=== PATIENT | female | born 1950 | race African-American/Black ===

== ENCOUNTER → 2017-09-04 09:24 | Outpatient (CLI) | payer MEDICARE ==
[~2017-09-04 09:24] MED LIST: ARAVA10 MG PO; FOLIC ACID1 MG PO; IBUPROFEN200 MG PO; NORVASC5 MG PO; TRIAMTERENE-HCT1 TA1 PO; ZANTAC150 MG PO
--- NOTE | 2017-09-08 08:55 | EC ---
PATIENT:KELLY CORMIER DATE OF SERVICE: 09/04/17 SEX: F MEDICAL RECORD: [id number] DATE OF : 52 LOCATION:D[facility] AGE OF PATIENT: 67 ADMISSION DATE: 09/04/17 REFERRING PHYSICIAN: INTERPRETING PHYSICIAN: JANNETTE DRAKE MD ECHOCARDIOGRAM REPORT ECHO CHARGES 4 ECHO COMPLETE CLINICAL DIAGNOSIS: PALPITATIONS,TACHYCARDIA,DYSPN EA ECHOCARDIOGRAPHIC MEASUREMENTS (adult normal given) AC root (d.<3.7cm) 2.8 cm LV Septum d (<1.2 cm> 1.1 cm Valve Excursion 1.1 cm LV Septum (systole) 1.5 cm Left Atria (s.<4.0cm> 3.1 cm LVPW d(<1.2cm) 1.2 cm RV (d.<2.3cm) 3.7 cm LVPW (sytole) 1.5 cm LV diastole(<5.6CM) 4.4 cm MV E-F(>70mm/sec) cm LV systole 2.8 cm LVOT Diameter 1.7 cm MV exc.(>10mm) cm Est.ejection fraction (50-75%) % Pericardial Effusion N DOPPLER: LVIT cm/sec A 98.0 cm/sec E 70.0 cm/sec LA cm/sec RVSP 39 mmHg LVOT 95 cm/sec AOP1/2T m/s Asc. Ao 128 cm/sec RVOT 72 cm/sec RA cm/sec PA 92 cm/sec AV Gradient Peak 6.51 mmHg AV Mean 2.75 mmHg AV Area 1.8 cm MV Gradient Peak 4.23 mmHg MV Mean 1.70 mmHg MV Area cm COMMENTS: Referral Rn: 2 SHERRY HORAN Mailing Section Clerk: 4 Dr. Drake TAPE# PACS DATE OF SERVICE: 09/04/2017 PROCEDURE: Transthoracic echocardiogram. FINDINGS: 1. Left ventricle shows mild left ventricular hypertrophy with inflow characteristics consistent with diastolic dysfunction. Ejection fraction 55% to 60% without any obvious regional wall motion abnormalities. 2. The left atrium is normal size, normal function. 3. The mitral valve has mild thickening with eccentric mild mitral ECHOCARDIOGRAM REPORT [id number] KELLY CORMIER regurgitation. 4. The aortic valve not well visualized, appears to be grossly normal. 5. Tricuspid valve has mild tricuspid regurgitation. RVSP calculated at 35-40 mmHg. 6. The IVC appears to be normal size and collapses with inspiration. 7. The right ventricle is normal size, normal function. 8. The right atrium is mildly dilated. CONCLUSIONS: The patient has evidence of mild hypertensive heart disease, preserved LV systolic function, no gross valvular abnormalities noted. TRANSINT:[id number] Voice Confirmation ID: [id number] DOCUMENT ID: [id number] JANNETTE DRAKE MD at 0855 CC: [id number] DICTATION DATE: 09/07/17811 PROFESSOR OF EDUCATION: 09/07/[address] [place] [address] CLI 09/04/17 [facility] [address] [place] [address]
[2017-10-20 07:54] VITALS: BMI 25.7
== END | disposition home or self-care (01) ==
LOC: D.ECHO 09:24
DX: R00.2 Palpitations (principal); R00.0 Tachycardia, unspecified; R06.02 Shortness of breath; I10 Essential (primary) hypertension; R06.83 Snoring; R40.0 Somnolence

== ENCOUNTER 2017-10-20 07:10 | Outpatient (CLI) | payer MEDICARE ==
[~2017-10-20] VITALS: Ht 154.9 cm; Wt 61.8 kg
--- NOTE | ~2017-10-20 | HEMODYNAMI ---
PATIENT:KELLY CORMIER MEDICAL RECORD: [id number] : 52 LOCATION:[facility] ADMISSION DATE: 10/20/17 Generatedon:10/20/20179:36 Patient name: KELLY CORMIER Patient #: [id number] SSN: : Date of study: 10/20/2017 Page: Of Hemodynamic Procedure Report Patient Data Patient Demographics Procedure consent was obtained First Name: KELLY Gender: Female Last Name: CASA : 1950 Patient #: [id number] Age: 67 year(s) Race: Black Additional ID: [id number] Contact details Address: [address] [place] [address] [facility] State: [place] City: [place] Zip code: [address] Past Medical History Allergies Allergen Reaction Date Comments Reported Other allergy 10/20/2017 IODINE Admission Admission Data Admission Date: 10/20/2017 Admission Time: 7:10 Admit Source: Other Lab Results Lab Result Date: 10/20/2017 Lab Result Time: 8:24 Biochemistry Name Units Result Min Max BUN mg/dl 24 --(----)-* 7 18 Creatinine mg/dl 0.8 --(-*--)-- 0.6 1.3 CBC Name Units Result Min Max Hematocrit % 35.8 *-(----)-- 42 54 Hemoglobin g/dl 11.4 *-(----)-- 13.5 17.5 Procedure Procedure Types Cath Procedure Diagnostic Procedure LHC LHC w/Coronaries Miscellaneous Procedures Moderate Sedation up to 15 minutes Procedure Description Procedure Date Procedure Date: 10/20/2017 Procedure Start Time: 9:24 Procedure End Time: 9:35 Procedure Staff Name Function Yohan Harmon MD Performing Physician Rosas Mcbride RT Monitor Deanna Carrasquillo RT Scrub Timbo Ramos RN Nurse Chuy Duran RN [employer] Instrument Repairer Procedure Data Cath Procedure Fluoroscopy Diagnostic fluoroscopy Total fluoroscopy Time: 0.9 time: 0.9 min min Diagnostic fluoroscopy Total fluoroscopy dose: dose: 39.54 mGy 39.54 mGy Contrast Material Contrast Material Type Amount (ml) Isovue 300 30 Entry Location Entry Primary Successful Side Size Upsize Upsize Entry Closure Succes sful Closure Location (Fr) 1 (Fr) 2 (Fr) Remarks Device Remarks Femoral Right 5 Fr Exoseal artery Estimated blood loss: 5 ml Diagnostic catheters Device Type Used For End Catheter Placement MULTIPACK JL 4.0 5Fr Procedure catheter MULTIPACK 3DRC 5Fr Procedure catheter MULTIPACK Pigtail 5 Fr Procedure catheter Procedure Complications No complications Procedure Medications Medication Administration Route Dosage 0.9% NaCl I.V. 100 ml/hr Oxygen NC 2 l/min Heparin Flush Bag added to field 2 bags (1000units/500ml NS) Lidocaine 2% added to field 20 Versed I.V. 1 mg Fentanyl I.V. 25 mcg Hemodynamics Rest HGB: 11.4 (g/dl) Heart Rate: 89 (bpm) Pressure Samples Time Site Value (mmHg) Purpose Heart Use Rate(bpm) 9:30 LV 118/-18,6 EDP 84 Gradients Valve Time Site Site Mean SEP/DFP Peak To Heart Use 1 2 (mmHg) (sec/min) Peak Rate (mmHg) (bpm) Aortic 9:31 LV AO 88 Snapshots Pre Cath Intra NCS Post Cath Vital Signs Time Heart Resp SPO2 etCO2 NIBP (mmHg) Rhythm Pain Sedation Rate (ipm) (%) (mmHg) Status Level (bpm) 8:52:02 87 14 98 0 135/80(112) NSR 0 (11) 10(A) , No pain 8:56:08 90 13 99 41.4 126/89(107) NSR 0 (11) 10(A) , No pain 9:18:52 81 16 100 33.8 114/81(103) NSR 0 (11) 10(A) , No pain 9:22:56 83 21 100 40.6 109/82(98) NSR 0 (11) 9(A) , No pain 9:26:57 86 20 100 39.1 114/76(93) NSR 0 (11) 9(A) , No pain 9:31:01 86 16 100 31.6 113/77(89) NSR 0 (11) 9(A) , No pain 9:35:05 86 14 100 33.1 120/74(95) NSR 0 (11) 9(A) , No pain Medications Time Medication Route Dose Verified Delivered Reason Notes Effec tiveness by by 9:17:28 0.9% NaCl I.V. 100 Timbo Timbo Per ml/hr Rachel Ramos physician RN RN 9:17:40 Oxygen NC 2 Timbo Timbo Per l/min Rachel Ramos physician RN RN 9:17:54 Heparin Flush added 2 Timbo Timbo used for Bag to bags Lorigan Rachel procedure (1000units/500ml field RN RN NS) 9:18:08 Lidocaine 2% added 20ml Timbo Timbo for local to vial Lorigan Lorigan anesthetic field RN RN 9:18:23 Versed I.V. 1 mg Timbo Timbo for Lorigan Lorigan sedation RN RN 9:18:35 Fentanyl I.V. 25 Timbo Timbo for mcg Lorigan Lorigan sedation RN cut and cover line worker Log Time Note 8:15:42 Deanna Counts RT(R) sent for patient. Start room use. 8:37:06 Informed consent obtained and on chart 8:37:30 Admit Source: Other 8:37:32 Diagnostic Cath status Elective 8:37:35 Time tracking: Regular hours 8:37:38 Plan of Care:Hemodynamics will remain stable., Cardiac rhythm will remain stable., Comfort level will be maintained., Respiratory function will remain adequate., Patient/ family verbilizes understanding of procedure., Procedure tolerated without complication., Recovers from procedure without complications.. 8:42:55 Patient received from Pre/Post Procedure Room to CCL 3 Alert and oriented. Tansferred to table in Supine position. 8:42:57 Warm blankets applied, and omer hugger turned on for patient comfort. 8:42:57 Correct patient and procedure confirmed by team. 8:42:58 ECG and BP/O2 sat monitors applied to patient. 8:43:31 H&P Date Dictated: 10/12/2017 Within 30 days and on chart., H&P Addendum completed by physician on day of procedure. (MUST COMPLETE FOR ALL OUTPATIENTS). 8:50:57 Vital chart was started 8:52:45 Pre-procedure instructions explained to patient. 8:52:45 Pre-op teaching completed and patient verbalized understanding. 8:52:51 Family in patients room. 8:52:53 Patient NPO since Midnight. 8:53:06 Patient allergic to Other allergyIODINE 8:53:08 Is the patient allergic to Iodine/contrast media? Yes. 8:53:09 Was the patient premedicated? Yes 8:53:09 Is patient on blood thinner?Yes 8:53:11 ACC The patient was administered the following blood thiners within the last 24 hours: ACCPlavix 8:53:13 Patient diabetic? No. 8:53:15 Previous problem with sedation/anesthesia? No ? 8:53:16 Snore? No 8:53:17 Sleep apnea? No 8:53:18 Deviated septum? No 8:53:19 Opens mouth fully? Yes 8:53:19 Sticks out tongue? Yes 8:53:21 Airway obstruction? No ? 8:53:22 Dentures? No ? 8:56:55 Baseline sample Acquired. 8:57:02 Rhythm: sinus rhythm 8:57:07 Pre procedure: right dorsailis pedis pulse 2+ Normal; easily identifiable; not easily obliterated 8:57:09 Patient pain scale 0/10 ?. 8:57:52 IV right forearm D/C'd due to infiltration. 9:03:02 Lab Result : BUN 24 mg/dl 9:03:02 Lab Result : Creatinine 0.8 mg/dl 9:03:02 Lab Result : Hemoglobin 11.4 g/dl 9:03:02 Lab Result : Hematocrit 35.8 % 9:03:04 Lab results completed and on chart. 9:03:07 Right groin area was prepped with chlora-prep and draped in sterile fashion 9:03:08 Alarms reviewed by R. N. 9:03:09 Sharps counted by scrub and verified by R.N. 9:03:25 IV CATHETER 22g opened to sterile field. 9:12:36 IV started by Chuy Duran RN inLeft upper arm with a 22 gauge IV catheter with 0.9% NaCl at KVO. 9:12:42 Use device set Femoral Dx 9:12:43 ACIST Syringe (42331) opened to sterile field. 9:12:47 Bag Decanter (2002S) opened to sterile field. 9:12:47 Medline Cath Pack ([id number]) opened to sterile field. 9:17:04 MICROPUNCTURE 4FR Digital Theatre ([id number]) opened to sterile field. 9:17:05 Tegaderm 4 x 4 (1626W) opened to sterile field. 9:17:06 ACIST Manifold (28104) opened to sterile field. 9:17:07 ACIST Hand Control (77694) opened to sterile field. 9:17:08 DIAGNOSTIC WIRE .035 260cm J wire (929289) opened to sterile field. 9:17:12 SHEATH 5FR [place] (QZN689) opened to sterile field. 9:17:13 DIAGNOSTIC Multipack 5Fr catheter set (PY2270) opened to sterile field. 9:17:14 PERCUTANEOUS ENTRY 19GA needle opened to sterile field. 9:17:20 Physician arrived 9::20 --------ALL STOP TIME OUT------ 9:17:21 Final Timeout: patient, procedure, and site verified with staff and physician. All members of the team are in agreement. 9:17:23 Right groin site verified by team. 9:17:25 Physical assessment completed. ASA score P 2 - A patient with mild systemic disease as per Yohan Harmon MD. 9:17:28 0.9% NaCl 100 ml/hr I.V. was administered by Timbo Ramos RN; Per physician; ::28 Sedation plan: IV Moderate Sedation Medication:Versed, Fentanyl 9:17:40 Oxygen 2 l/min NC was administered by Timbo Ramos RN; Per physician; 9:17:54 Heparin Flush Bag (1000units/500ml NS) 2 bags added to field was administered by Timbo Ramos RN; used for procedure; 9:18:08 Lidocaine 2% 20ml vial added to field was administered by Timbo Ramos RN; for local anesthetic; 9:18:23 Versed 1 mg I.V. was administered by Timbo Ramos RN; for sedation; 9:18:35 Fentanyl 25 mcg I.V. was administered by Timbo Ramos RN; for sedation; 9:20:02 Zero performed for pressure channel P1 9:20:17 Zero performed for pressure channel P1 9:24:28 Procedure started. 9:24:28 Full Disclosure recording started 9:24:30 Local anesthetic to right femoral artery with Lidocaine 2% by Yohan Harmon MD.INITIAL ACCESS ONLY 9:24:49 Access obtained with 4Fr micropunture. 9:24:52 Zero performed for pressure channel P1 9:25:28 A 5 Fr sheath was inserted into the Right Femoral artery 9::19 A MULTIPACK JL 4.0 5Fr catheter was advanced over the wire and used for Procedure. 9:27:09 LCA angiography performed. 9:27:39 Catheter exchanged over wire. 9:27:44 A MULTIPACK 3DRC 5Fr catheter was advanced over the wire and used for Procedure. 9:28:59 RCA angiography performed. 9:29:03 EXOSEAL 5Fr (EX500) opened to sterile field. 9:29:07 Catheter exchanged over wire. 9:30:21 A MULTIPACK Pigtail 5 Fr catheter was advanced over the wire and used for Procedure. 9:30:36 LV gram done using DORMAN 9:30:38 Injector settings: Ml/sec: 12, Volume: 8, 9:30:40 LV hemodynamics recorded. 9:31:11 EF : 65 % 9:31:12 Catheter removed. 9:31:19 Sheath removed intact; hemostasis achieved with Exoseal to the Right Femoral artery. 9:31:21 Procedure ended.(Physican Out) 9:32:21 Fluoroscopy time 00.90 minutes. 9:32:26 Fluoroscopy dose: 39.54 mGy 9:32:26 Flurop Dose total: 39.54 9:32:46 Contrast amount:Isovue 300 30ml. 9:32:52 Sharps counted by scrub and verified by R.N. 9:33:54 Insertion/operative site no bleeding no hematoma. 9:33:56 Post-op/insertion site Right Femoral artery dressed using a 4 x 4 and Tegaderm. 9:34:01 Post right femoral artery:stable, soft, clean and dry 9:34:02 Post Procedure Pulses reassessed and unchanged 9:34:05 Post-procedure physical assessment completed. ASA score P 2 - A patient with mild systemic disease as per Yohan Harmon MD. 9:34:07 Post procedure rhythm: unchanged. 9:34:09 Estimated blood loss: 5 ml 9:34:10 Post procedure instruction explained to patient.Patient verbalizes understanding. 9:34:10 Patient needs reinforcement of post procedure teaching. 9:34:56 Procedure and supply charges have been captured, reviewed, submitted and are correct. 9:34:58 Procedure Complication : No complications 9:34:59 Vital chart was stopped 9:35:00 See physician's report for complete and final results. 9:35:02 Report given to Pre/Post Procedure Room. 9:35:04 Patient transfered to Pre/Post Procedure Room with Stretcher. 9:35:07 Procedure ended. 9:35:07 Full Disclosure recording stopped 9:35:22 End room use (Document Last) Device Usage Item Name Manufacture Quantity Catalog Hospital Part Current Minima l Lot# / Number Charge Number Stock Stock Serial# Code IV CATHETER B. [place]o 1 [id number] 720265 379413 5 22g ACIST Syringe Acist 1 52231 036831 727242 567648 20 (54219) Medical Systems Inc Bag Decanter Microtek 1 2001S 227731 87262 409421 5 (2001S) Medical Inc. Medline Cath Cardinal 1 [id number] 430474 14025 885602 5 Pack Clipper Windpower ([id number]) MICROPUNCTURE Digital Theatre Medical 1 B29954 077617 588677 913055 5 4FR Digital Theatre (H53354) Tegaderm 4 x 3M 1 1626W 705796 581926 562032 5 4 (1626W) ACIST Acist 1 58797 471446 778615 526907 5 Manifold Medical (51301) Systems Inc ACIST Hand Acist 1 03526 468583 923105 567922 5 Control Medical (10147) Systems Inc DIAGNOSTIC St Dario 1 691148 545555 789948 900608 30 WIRE .035 260cm J wire (104335) SHEATH 5FR Terumo 1 UQJ734 277966 176358 799674 40 [place] (XKE176) DIAGNOSTIC Cardinal 1 QF5849 212936 71734 469026 30 Multipack 5Fr Health catheter set (KL3590) PERCUTANEOUS Cook Medical 1 F77279 581659 138689 5 ENTRY 19GA needle MULTIPACK JL Cardinal 1 276963 5 4.0 5Fr Health catheter MULTIPACK Cardinal 1 025961 5 3DRC 5Fr Health catheter EXOSEAL 5Fr Cardinal 1 EX500 795394 464607 637892 10 (EX500) Health MULTIPACK Cardinal 1 098274 5 Pigtail 5 Fr Health catheter Signature Audit Temple Stage Time Signature Unsigned Intra-Procedure 10/20/2017 Rosas Mcbride 9:36:37 AM RT(R) Signatures Monitor : Rosas Mcbride RT Signature : Date : Time : [address] [place] [address]
[2017-10-20] MEDS ORDERED: TRIAMTERENE-HCT1 TA1 PO (07:49)
[2017-10-20] MEDS ORDERED: FOLIC ACID1 MG PO (07:49)
[2017-10-20] MEDS ORDERED: NORVASC5 MG PO (07:50)
[2017-10-20] MEDS ORDERED: ARAVA10 MG PO (07:50)
[2017-10-20] MEDS ORDERED: ZANTAC150 MG PO (07:51)
[2017-10-20] MEDS ORDERED: IBUPROFEN200 MG PO (07:53)
[2017-10-20 07:54] VITALS: BP 130/90; Ht 154.9 cm; Wt 61.8 kg
[2017-10-20 08:34] LABS: BASOPHILS 0.3 % (0-2); EOSINOPHILS 2.8 % (0-7); HEMATOCRIT 35.8 % (36.0-48.0); HEMOGLOBIN 11.4 g/dL (12-16); LYMPHOCYTES 30.7 % (15-50); MCHC 31.8 g/dL (31.0-37.0); MEAN PLATELET VOLUME 9.5 fL (7.4-10.4); MONOCYTES 11.9 % (2-11); NEUTROPHILS 54.3 % (40-80); PLATELET COUNT 352 10x3/uL (130-400); RBC 4.07 10x6/uL (4.00-5.40); RDW 13.8 % (11.5-14.5); WBC 3.9 10x3/uL (4.8-10.8)
[2017-10-20 08:42] LABS: CALC OSMOLALITY 279 mosm/kg (275-300); CALCIUM 9.7 mg/dL (8.5-10.1); CARBON DIOXIDE 32.1 mmol/L (21.0-32.0); CHLORIDE - SERUM 99 mmol/L (98-107); CREATININE - SERUM 0.8 mg/dL (0.6-1.3); GLUCOSE 106 mg/dL (74-106); SODIUM 138 mmol/L (136-145); UREA NITROGEN 24 mg/dL (7-18); eGFR NON AFRICAN AMERICAN 76 mL/min (90-120)
== END 2017-10-20 11:55 | disposition home or self-care (01) ==
LOC: D.CATH 07:10
PROVIDERS: Internal Medicine Cardiovascular Disease
DX: R07.9 Chest pain, unspecified (principal); R94.39 Abnormal result of other cardiovascular function study; I10 Essential (primary) hypertension; Z01.812 Encounter for preprocedural laboratory examination; R00.2 Palpitations